=== PATIENT | female | born 1960 | race Caucasian/White ===

== ENCOUNTER → 2021-07-23 | Day surgery (SDC) | payer BC | LOC: CSHSDC/OP 01:00 | PROVIDERS: ATTEND Specialist | DX: M05.89 Other rheumatoid arthritis with rheumatoid factor of multiple sites (principal); Z79.899 Other long term (current) drug therapy ==

== ENCOUNTER 2022-04-18 14:49 | Outpatient (CLI) | payer BC | END 2022-04-18 14:50 | disposition home or self-care (01) | LOC: CSHMAMMO 14:49 | PROVIDERS: ATTEND Obstetrics & Gynecology | DX: Z12.31 Encounter for screening mammogram for malignant neoplasm of breast (principal) | CPT/HCPCS: 77063; 77067 ==

== ENCOUNTER 2022-05-22 15:51 | Outpatient (CLI) | payer BC | END 2022-05-22 15:52 | disposition home or self-care (01) | LOC: CSHRAD 15:51 | PROVIDERS: ATTEND Specialist | DX: L92.9 Granulomatous disorder of the skin and subcutaneous tissue, unspecified (principal) | CPT/HCPCS: 71046 ==

== ENCOUNTER 2023-08-25 15:44 | Outpatient (CLI) | payer BC | END 2023-08-25 15:45 | disposition home or self-care (01) | LOC: CSHCP 15:44 | PROVIDERS: ATTEND Internal Medicine | DX: R05.3 Chronic cough (principal); J44.9 Chronic obstructive pulmonary disease, unspecified | CPT/HCPCS: 94060; 94664; 94726; 94729; 94760 ==

== ENCOUNTER 2024-06-15 13:50 | Outpatient (CLI) | payer BC | END 2024-06-15 13:51 | disposition home or self-care (01) | LOC: CSHMAMMO 13:50 | PROVIDERS: ATTEND Obstetrics & Gynecology | DX: Z12.31 Encounter for screening mammogram for malignant neoplasm of breast (principal) | CPT/HCPCS: 77063; 77067 ==

== ENCOUNTER 2025-06-17 11:03 | Outpatient (CLI) | payer BC | END 2025-06-17 11:04 | disposition home or self-care (01) | LOC: CSHMAMMO 11:03 | PROVIDERS: ATTEND Obstetrics & Gynecology | DX: Z12.31 Encounter for screening mammogram for malignant neoplasm of breast (principal) | CPT/HCPCS: 77063; 77067 ==